=== PATIENT | female | born 1935 | race Caucasian/White ===

== ENCOUNTER → 2016-11-27 | Outpatient (CLI) | payer MEDICARE, OTHER ==
[~2016-11-27] MED LIST: ACET-785 PO; ALPR-236 PO; BLACK COHOSH PO; BUDE0.2510 IH; CALC600T86 PO; CHOL200026 PO; CLON0.2T73 PO; CLOT45CR TP; DILT120C61 PO; FAMO20TA7 PO; LABE100T19 PO; LOSA50TA17 PO; MAGN311T3 PO; MULT-543 PO; MULT-635 PO; OMEP20TA24 PO; SUCR1TAB29 PO; TRAM50TA4 PO; TRAZ-56 PO; ZOLP-107 PO
== END ==
LOC: IMA 14:19
PROVIDERS: ATTEND Nurse Practitioner
DX: M81.0 Age-related osteoporosis without current pathological fracture (principal); Z78.0 Asymptomatic menopausal state